=== PATIENT | male | born 1940 | race Caucasian/White ===

== ENCOUNTER → 2017-06-25 | Outpatient (CLI) | payer OTHER ==
[~2017-06-25] VITALS: Ht 182.9 cm; Wt 79.4 kg
[~2017-06-25] MED LIST: B COMPLEX1 EACH PO; FISH OIL 1,001000 M2 PO; GLUCOSAMINE CH1 EAC1 PO; IBUPROFEN 200200 M1 PO; MULTI VITAMIN1 EACH PO; TIMOLOL MA0.25 %/52 OPHTHALMIC; VITAMIN D31000 UNI2 PO; ZANTAC 150MG T150 MG PO
--- NOTE | ~2017-06-25 | P ---
[facility] [place] [address] PROCEDURE REPORT Name: JCARLOS ENGLISH Room #: REG [facility]#: [id number] Admission: 06/25/17 Attend Phys: Lon Doyle MD Discharge: Date of : 40 Report #: [id number] THIS REPORT FOR: //name// CC: Lon Welsh MD BRIEF HISTORY: The patient is a 76-year-old male with recent findings of Hemoccult positive stools. His last colonoscopy was in 2006. PREOPERATIVE DIAGNOSIS: Hemoccult positive stools. POSTOPERATIVE DIAGNOSES: 1. Sessile polyp, mid ascending colon. 2. Diminutive polyp at 70 cm. SPECIMENS: 1. Ascending colon polyp. 2. Polyp at 70 cm. ESTIMATED BLOOD LOSS: 3 mL. PROCEDURE: Colonoscopy to cecum and terminal ileum with snare polypectomy and biopsy. FINDINGS: Prior to propofol sedation, the procedure of colonoscopy discussed with the patient as well as potential risks, benefits, and complications. He indicates he understands and desires to proceed. With the patient in left lateral decubitus position, digital examination was completed, which revealed no abnormalities. Subsequently, the Zidisha video colonoscope was introduced into the rectum and advanced under direct vision to the cecum. Done with minimal difficulty. The cecum was identified by the ileocecal valve and the appendiceal orifice. I was able to visualize the distal segment of the terminal ileum, which was inspected and noted to be unremarkable. At that point, the scope was slowly withdrawn and careful circumferential views were obtained. As we withdrew the scope, the prep was noted to be good. The mucosa was within normal limits, normal vascular pattern, and normal light reflex. As we withdrew the scope through the colon, he was noted to have a sessile polyp in the mid ascending colon, it was a mucus covered polyp and thus may be a serrated adenoma. It was about 12-mm in greatest dimension and the bulk was removed the first pass of the polypectomy snare, a small amount remained and this was cleaned up with the second pass of the polypectomy snare. No residual polyp tissue was seen remaining. The scope was further withdrawn and the mucosa was normal until at 70 cm, at which point a diminutive polyp was seen and removed by biopsy. Scope was further withdrawn. No additional abnormalities were seen. Scope was withdrawn in the rectum. Upon retroflexion, [address] [address] PROCEDURE REPORT Name: JCARLOS ENGLISH Room #: REG [facility]#: [id number] Admission: 06/25/17 Attend Phys: Lon Doyle MD Discharge: Date of : 40 Report #: [id number] no abnormalities were seen. Scope was withdrawn. The patient tolerated the procedure well. CONDITION OF THE PATIENT UPON DISCHARGE: Following procedure, the patient drowsy, aroused, conversant and will be discharged to home when fully ambulatory. INSTRUCTIONS TO THE PATIENT AND FAMILY AT THE TIME OF DISCHARGE: The patient with findings as noted above. The proximal ascending colon polyp was large enough that potentially for Hemoccult positive stools, although active bleeding was not identified. We will follow up on the path, but due to the size of this polyp and the likely this is an advanced adenoma, I would suggest return in 3 years for followup colonoscopy, otherwise return to care of Dr. Kellee Welsh and return to see me as needed. Last colonoscopy was 10 years ago. Withdrawal time from the cecum was 18 minutes and 48 seconds. <ELECTRONICALLY SIGNED> By: Lon Doyle MD 06/26/17 1656 [id number] Lon Doyle MD /nt
--- NOTE | ~2017-06-25 | S ---
[facility] [address] [place] [address] SURGICAL PATH RPT PROCEDURE Name: JCARLOS ENGLISH Room #: REG [facility].#: [id number] Admission: 06/25/17 Date of : 40 Discharge: Report #: [id number] Path Case #: [id number] PATHOLOGY REPORT DRAFT COLLECTION DATE: 06/25/2017 RECEIVED DATE: 06/26/2017 SPECIMEN(S) RECEIVED: A.Bx of gastritis B.Polyp at mid ascending colon C.Polyp at 70
--- NOTE | ~2017-06-25 | P ---
[facility] [address] PROCEDURE REPORT Name: JCARLOS ENGLISH Room #: REG [facility]#: [id number] Admission: 06/25/17 Attend Phys: Lon Doyle MD Discharge: Date of : 40 Report #: [id number] THIS REPORT FOR: //name// CC: Lon Welsh MD BRIEF HISTORY: The patient is a 76-year-old male who was recently found to have a Hemoccult-positive stools. He does have intermittent reflux symptoms, for which he takes ranitidine. He also had been using a lot of ibuprofen recently due to back problems and recent back surgery. PREOPERATIVE DIAGNOSIS: Hemoccult-positive stools. POSTOPERATIVE DIAGNOSES: 1. Mild grade A erosive esophagitis. 2. Diffuse gastritis. 3. Deformed duodenal bulb, suggestive of remote ulcer disease without evidence of active ulcer. MEDICATIONS: Deep sedation with propofol per Anesthesia. SPECIMEN: Biopsies of gastritis. ESTIMATED BLOOD LOSS: 3 mL. PROCEDURE: EGD with biopsy. FINDINGS: Prior to propofol sedation, procedure of upper endoscopy discussed with the patient as well as potential risks and its complications. He indicates he understands and desires to proceed. DESCRIPTION OF PROCEDURE: With the patient in left lateral decubitus position, Fuji video endoscope was inserted into the cervical esophagus under direct vision without difficulty. Examination of this organ through its entire length revealed normal esophageal mucosa down to the squamocolumnar junction. Examination of squamocolumnar junction revealed a couple of small erosions. There is no evidence of significant hiatus hernia, strictures, masses or Moreno esophagus. The scope was advanced in the stomach, was examined on end view as well as retroflexed views. There was a pattern of diffuse gastritis. However, no ulcers or bleeding lesions were seen. Biopsies were obtained. Upon retroflexion, no mass, lesions were seen. No other abnormalities were identified. The pylorus was normal. Examination of duodenal bulb revealed what appeared to be a pseudodiverticulum suggestive of previous ulcer disease, but an active ulcer was not seen today. The duodenal sweep was unremarkable. At that point, the scope was slowly withdrawn and under careful circumferential views confirmed the above findings. The patient tolerated the procedure well. [address] [address] PROCEDURE REPORT Name: TAMEKAJCARLOS Emperatriz Room #: REG [facility].#: [id number] Admission: 06/25/17 Attend Phys: Lon Doyle MD Discharge: Date of : 40 Report #: [id number] CONDITION OF THE PATIENT UPON DISCHARGE: Following this procedure, the patient was drowsy and prepared for colonoscopy. INSTRUCTIONS TO THE PATIENT AND FAMILY AT THE TIME OF DISCHARGE: He does have evidence of very mild esophagitis, grade A. I think use of a PPI on an intermittent basis would be reasonable. I suggest he use omeprazole 20 mg daily for 4-6 weeks. He may use on an as needed basis thereafter. He should be cautious with use of ibuprofen, but now he has had back surgery, will likely require less. We will proceed with colonoscopy for further evaluation of Hemoccult-positive stools. An obvious bleeding source was not seen on this exam. <ELECTRONICALLY SIGNED> By: Lon Doyle MD 06/26/17 1656 [id number] Lon Doyle MD /nt
== END | disposition home or self-care (01) ==
LOC: GI 06:47
DX: D12.2 Benign neoplasm of ascending colon (principal); K21.9 Gastro-esophageal reflux disease without esophagitis; D12.4 Benign neoplasm of descending colon; K29.70 Gastritis, unspecified, without bleeding; K22.10 Ulcer of esophagus without bleeding; Z87.891 Personal history of nicotine dependence; Z90.49 Acquired absence of other specified parts of digestive tract; Z98.890 Other specified postprocedural states
CPT/HCPCS: 62110; 62900